=== PATIENT | female | born 1960 | race Hispanic/Latino ===

== ENCOUNTER 2025-04-02 12:04 | Emergency (ER) | payer OTHER, MEDICARE ==
[~2025-04-02] VITALS: Ht 154.9 cm; Wt 101.2 kg
[2025-04-02 12:06] VITALS: BP 161/80; PULSE 89; RESP 20; TEMP 98.1
--- NOTE | 2025-04-02 12:08 | NUR ---
TRAUMA LEVEL 2 ACTIVATED.SEE PAPER DOCUMENTATION.
--- NOTE | 2025-04-02 12:13 | ERN ---
ED Note History of Present Illness Stated Complaint: FALL Chief Complaint: Mechanical Fall Time Seen by MD: 12:10 Dictation: PATIENT IS A 64-YEAR-OLD FEMALE COMING IN VIA EMS WITH COMPLAINTS OF A SLIP FALL AT A LOCAL STORE. SHE SAID SHE HAD JUST BOUGHT A SANDWICH AND SLIPPED ON SOMETHING ON THE FLOOR. SHE HIT HER RIGHT OCCIPUT RIGHT SHOULDER RIGHT LATERAL HIP AND RIGHT LOWER LEG WHEN SHE FELL. NO SHORTENING OR ROTATION OF RIGHT LEG. THERE WAS NO LOC NO NAUSEA VOMITING SHE IS ON BLOOD THINNERS AND TRAUMA ALERT WE WILL BE ACTIVATED. NO MIDLINE SPINE PAIN. NEUROLOGICALLY INTACT. Allergies: Uncoded Allergies: NKA (Allergy, 10/21/11) Past Medical History History: Not Applicable RN Note Reviewed/Agreed w/PFSH: Yes Review of System Dictation CONSTITUTIONAL: NEGATIVE EXCEPT FOR HPI HEAD/FACE: NEGATIVE EXCEPT FOR HPI RIGHT OCCIPITAL TENDERNESS EENT: NEGATIVE EXCEPT FOR HPI RESPIRATORY: NEGATIVE EXCEPT FOR HPI GASTROINTESTINAL/ABDOMINAL: NEGATIVE EXCEPT FOR HPI GENITOURINARY: NEGATIVE EXCEPT FOR HPI MUSCULOSKELETAL: NEGATIVE EXCEPT FOR HPI RIGHT SHOULDER/RIGHT POSTERIOR HIP/RIGHT LOWER LEG TENDERNESS MEDIALLY. INTEGUMENTARY: NEGATIVE EXCEPT FOR HPI NEUROLOGICAL/PSYCH: NEGATIVE EXCEPT FOR HPI HEMATOLOGIC/LYMPHATIC: NEGATIVE EXCEPT FOR HPI ALL SYSTEMS NEGATIVE, EXCEPT NOTED ABOVE. 13 POINT REVIEW OF SYSTEMS ASSESSED AND ALL NEGATIVE EXCEPT FOR ABOVE. Initial Vital Sign VS Vital Signs Date Time Temp Pulse Resp B/P (MAP) Pulse Ox O2 Delivery O2 Flow Rate FiO2 04/02/25 12:06 98.1 89 20 161/80 97 Room Air Physical Exam Dictation VITAL SIGNS REVIEWED GENERAL APPEARANCE: ALERT, ORIENTED X 3, MODERATE ACUTE DISTRESS, WELL DEVELOPED, NOURISHED. HEAD AND FACE: MILD RIGHT OCCIPITAL TENDERNESS WITH PALPATION. NO GORE OR RACCOON SIGN EYES: PERRL, PINK CONJUNCTIVAS, EYELID NO TRAUMA, ANTERIOR CHAMBER WITH ARCUS SENILIS. EARS: PINNAS INTACT AND NO SIGNS OF TRAUMA OR ERYTHEMA EAR CANALS CLEAR AND NO DISCHARGE TM NO ERYTHEMA NO HEMOTYMPANUM NOSE: NO DISCHARGE, NO BLEEDING. OROPHARYNX: MOUTH NORMAL, TONGUE PINK, PHARYNX CLEAR,NO ERYTHEMA, TONSILS NO EXUDATES, NO ABSCESSES NOTED, MUCOUS MEMBRANE MOIST NECK: SUPPLE, NON-TENDER, NO THYROMEGALY, NO MASSES, NO JVD, NO BRUITS BREAST:DEFERRED CHEST:NO TENDERNESS, NO CREPITUS, NO PARADOXICAL MOVEMENT, NO RETRACTIONS LUNGS:CLEAR, WELL-VENTILATED, SYMMETRIC, NO RALES, NO WHEEZING, NO RHONCHI, NO STRIDOR, GOOD BREATH SOUNDS BILATERALLY HEART: REGULAR RATE, REGULAR RHYTHM, NO MURMUR, NO GALLOPS VASCULAR: NO PERIPHERAL EDEMA, ABDOMEN: SOFT, POSITIVE BOWEL SOUNDS, NONDISTENDED, NO GUARDING, NONTENDER, NO REBOUND, NO MASSES NO HEPATOMEGALY, NO SPLENOMEGALY, NO LANG'S SIGN, NO HERNIAS. RECTAL: DEFERRED GENITAL: DEFERRED NEUROLOGICAL: NORMAL SPEECH, MOTOR FUNCTION INTACT, SENSORY FUNCTION INTACT MUSCULOSKELETAL: NECK NO MIDLINE SPINE PAIN TWO CERVICAL/THORACIC/LUMBAR NO STEP-OFFS. ALL EXTREMITIES RIGHT ANTEROLATERAL SHOULDER PAIN. NO FULLNESS. RIGHT POSTERIOR HIP TENDERNESS WITHOUT SHORTENING OR ROTATION OF LEG. MILD TENDERNESS TO RIGHT MEDIAL TIBIAL AREA. SKIN IS INTACT. Results (Laboratory/Radiology) Laboratory/Radiology 1325, RIGHT SHOULDER X-RAY NEGATIVE EXCEPT FOR DEGENERATIVE CHANGES RIGHT HIP X-RAY NEGATIVE EXCEPT FOR DEGENERATIVE CHANGES RIGHT TIB-FIB X-RAY NEGATIVE IPITAL TENDERNESS RIGHT STATUS POST FALL PATIENT ON BLOOD THINNER TECHNIQUE: Axial computed tomography images of the head/brain without intravenous contrast. COMPARISON: None provided. FINDINGS: BRAIN: No evidence of acute hemorrhage. No mass lesion. No CT evidence for acute territorial infarct. No midline shift or extra-axial collections. VENTRICLES: No hydrocephalus. ORBITS: The orbits are unremarkable. SINUSES AND MASTOIDS: The paranasal sinuses and mastoid air cells are clear. BONES: No fracture. SOFT TISSUES: Unremarkable. IMPRESSION: No acute intracranial abnormality. /[place] Labs Reviewed?: Yes ED Course ED Course Orders Procedure Category Date Status Time Ct Head/Brain W/O CT 04/02/25 Resulted Contrast 12:10 Shoulder Comp 2+Vws Rt RAD 04/02/25 Resulted 12:10 Hip Unilat 2-3vw Right RAD 04/02/25 Resulted 12:10 Tibia/Fibula 2vws Rt RAD 04/02/25 Resulted 12:10 Acetaminophen 500mg PHA 04/02/25 Complete Tab (Tylenol 500mg T 12:30 Current Medications Medications (Trade) Dose Ordered Sig/Kalani Route PRN Reason Start Time Stop Time Status Last Admin Dose Admin Acetaminophen (TYLenol 500MG TAB) 1,000 mg ONCE ONCE PO 04/02/25 12:30 04/02/25 12:31 DC 04/02/25 13:06 Vital Signs Date Time Temp Pulse Resp B/P (MAP) Pulse Ox O2 Delivery O2 Flow Rate FiO2 04/02/25 13:06 98.1 04/02/25 12:06 98.1 89 20 161/80 97 Room Air 1420/PATIENT STATES PAIN IS MARKEDLY REDUCED AFTER TYLENOL. SHE IS ALERT AND ORIENTED X4 SPEECH IS CLEAR. SHE IS AWARE THAT CT OF THE HEAD, RIGHT SHOULDER X-RAY, RIGHT HIP AND RIGHT LOWER EXTREMITY ALL NEGATIVE. Medical Decision Making MDM MDM: DIFFERENTIAL DIAGNOSIS: SKULL FRACTURE/SUBDURAL HEMATOMA/SHOULDER CONTUSION/FRACTURE/HIP CONTUSION/FRACTURE/LOWER LEG FRACTURE/CONTUSION RATIONALE: TESTS CONSIDERED AND ORDERED SECONDARY TO SHARED DECISION MAKING INCLUDE: CT/RADIOLOGY PREVIOUS OUTSIDE RECORDS REVIEWED: OLD ER VISITS. RISK OF COMPLICATION AND/OR MORBIDITY OR MORTALITY OF PATIENT MANAGEMENT: NONE MEDICATIONS-PER MEDICATION RECONCILIATION NEED FOR HOSPITALIZATION: PATIENT DOES NOT MEET CRITERIA FOR HOSPITALIZATION. NO NEED FOR EMERGENCY MAJOR/MINOR SURGERY: NO THERE ARE NO SOCIAL CONCERNS WITH THIS PATIENT. PRESCRIPTION DRUG MANAGEMENT NONE, PATIENT STATES SHE CAN TAKE PLAIN TYLENOL ON AND DO JUST FINE PRESCRIPTIONS WILL INCLUDE SYMPTOMATIC CARE PATIENT'S PRIOR EXTERNAL MEDICAL RECORDS FROM OTHER ER VISITS WERE REVIEWED BY ME INDICATED. PRIOR TESTING AND RESULTS FROM PREVIOUS VISITS WERE REVIEWED. PRIOR TESTS WERE TAKEN INTO ACCOUNT WITH MEDICAL DECISION MAKING AND RESOURCE UTILIZATION, INDEPENDENT HISTORIAN/HISTORIANS WERE USED TO OBTAIN COMPLETE MEDICAL HISTORY. I INDEPENDENTLY INTERPRETED THE TEST THAT WERE PERFORMED, RESULTS WERE REVIEWED BY ME AND CONSIDERED FINDINGS ON RADIOLOGY IF ORDERED. MEDICAL MANAGEMENT AND EXAMINATION INTERPRETATION DISCUSSIONS WERE HAD BY ME WITH OTHER QUALIFIED HEALTHCARE PROFESSIONALS INDICATED FOR THE PATIENT'S CARE. DX & DISP Disposition: Discharge Departure Impression: Primary Impression: Contusion of scalp, initial encounter Additional Impressions: Contusion of right shoulder, initial encounter, Contusion of right hip, initial encounter, Contusion of right lower leg, initial encounter, Fall Condition: Stable Additional Instructions: FOLLOW-UP WITH PRIMARY CARE PROVIDER IN 1 TO 2 DAYS. TAKE MEDICATIONS DIRECTED HERE IN THE EMERGENCY ROOM. OKAY TO CONTINUE HOME MEDICATIONS UNLESS OTHERWISE DISCUSSED DURING YOUR VISIT IN THE EMERGENCY ROOM TODAY. RETURN TO YOUR NEAREST EMERGENCY ROOM IF SYMPTOMS WORSEN OR IF THERE IS NO IMPROVEMENT. CALL 911 IF YOU NEED IMMEDIATE ASSISTANCE. TAKE TYLENOL OR MOTRIN [id number] NEEDED AND IF NO CONTRAINDICATIONS ARE PRESENT. INCREASE ORAL HYDRATION. A WOUND CULTURE OR URINE CULTURE WAS ORDERED HERE IN THE EMERGENCY ROOM DEPARTMENT PLEASE FOLLOW-UP WITH PRIMARY CARE PROVIDER AND ADVISE THEM TO GET REPEAT PORTS FROM OUR FACILITY. IF YOU HAD ANY DAMON WRAP/SPLINTS THAT WERE APPLIED HERE, PLEASE DO NOT REMOVE THEM UNTIL YOU SEE YOUR PRIMARY CARE OR SPECIALTY. TAKE TYLENOL [id number] NEEDED FOR PAIN., COOL COMPRESSES TO PAIN THREE TO 4 TIMES A DAY. DIET AND ACTIVITY TOLERATED. RETURN TO THE EMERGENCY ROOM IF ANY CHANGES FROM HEAD INJURY WORK SHEET Referrals: JOSELIN GONSALEZ MD (PCP) Time of Disposition: 14:22 I have reviewed the case, and I agree with, Diagnosis and Plan BONNY MARTINEZ CONSUMER RELATIONS COMPLAINT CLERK Apr 02, 2025 12:13
[2025-04-02 13:06] VITALS: TEMP 98.1
--- NOTE | 2025-04-02 13:55 | HMCIMG ---
EXAM: CT Head Without IV contrast. CLINICAL HISTORY: OCCIPITAL TENDERNESS RIGHT STATUS POST FALL PATIENT ON BLOOD THINNER TECHNIQUE: Axial computed tomography images of the head/brain without intravenous contrast. COMPARISON: None provided. FINDINGS: BRAIN: No evidence of acute hemorrhage. No mass lesion. No CT evidence for acute territorial infarct. No midline shift or extra-axial collections. VENTRICLES: No hydrocephalus. ORBITS: The orbits are unremarkable. SINUSES AND MASTOIDS: The paranasal sinuses and mastoid air cells are clear. BONES: No fracture. SOFT TISSUES: Unremarkable. IMPRESSION: No acute intracranial abnormality. /[place]
--- NOTE | 2025-04-02 14:15 | HMCIMG ---
EXAM: Right tibia/fibula radiograph 2 view HISTORY: Fall COMPARISON: None TECHNIQUE: AP and lateral views FINDINGS: No fracture or dislocation. Few patellar enthesophytes as well as calcaneal enthesophyte. Soft tissue swelling. IMPRESSION: No fracture or dislocation seen. /[place]
--- NOTE | 2025-04-02 14:16 | HMCIMG ---
EXAM: Right hip radiograph 2 view; Pelvic radiograph 1 view HISTORY: Fall COMPARISON: None TECHNIQUE: AP view of the pelvis; AP and lateral view of the hip FINDINGS: Degenerative changes of the spine and SI joints. Calcified fibroid. Narrowing of the hip joints with osteophyte formation. No hip fracture or dislocation. IMPRESSION: No fracture or dislocation seen. /[place]
--- NOTE | 2025-04-02 14:17 | HMCIMG ---
EXAM: Right shoulder radiograph 2 view HISTORY: Pain COMPARISON: None FINDINGS: No acute fracture or dislocation. Glenohumeral and acromioclavicular joints appear normal. Visualized lungs are clear. IMPRESSION: No abnormalities seen. /[place]
== END 2025-04-02 15:30 | disposition home or self-care (01) ==
LOC: EDH 12:04
DX: S00.03XA Contusion of scalp, initial encounter (principal); S40.011A Contusion of right shoulder, initial encounter; S70.01XA Contusion of right hip, initial encounter; S80.11XA Contusion of right lower leg, initial encounter; W01.198A Fall on same level from slipping, tripping and stumbling with subsequent striking against other object, initial encounter; Y93.89 Activity, other specified; Y92.89 Other specified places as the place of occurrence of the external cause; Y99.8 Other external cause status
CPT/HCPCS: 70450; 73030; 73502; 73590; 99284; 99285